=== PATIENT | female | born 1965 | race American Indian/Alaskan Native ===

== ENCOUNTER 2016-12-11 21:20 | Inpatient (IN) | payer BC, OTHER ==
[~2016-12-11] VITALS: Ht 160 cm; Wt 95.2 kg
[~2016-12-11 21:20] MED LIST: FLAX OIL1000 MG PO; MULTIVITAMINS1 EAC7 PO; VITAMIN B-6100 MG PO; VITAMIN C100 MG PO
--- NOTE | 2016-12-12 05:06 | NUR ---
12/12/16 5692 Massiel Henson 6543-PATIENT ARRIVED TO ROOM 128 CCU VIA BED, PLACED ON VENTILATOR RT PUT SETTINGS. DRESSING TO ABDOMEN CDI. LIZARRAGA AND NG TUBE IN PLACE. PATIENT NONAROUSABLE. SR. WRIST RESTRAINTS PLACED. RNS AT BEDSIDE.
--- NOTE | 2016-12-12 07:06 | NUR ---
PT ARRIVED TO THE UNIT AT 0440. PACU MONITORED PT UNTIL 0515. TAPING AND CXR DIFFICULT DUE TO PT WAKING. PROPOFOL TITRATE TO SEDATION IV GTT ORDER AT [address] BUTLER[address] PT SITTING UP MUCH ABLE WHILE AT 20 DEGREES, PULLING AGAINST RESTRAINTS, UNABLE TO REDIRECT. PT OPENING EYES BILAT AND ON COMMAND PRIOR TO ETT TAPING, PT HAS HX OF INCREASED RR AND ANXIOUS PRIOR TO SURGERY. PROPOFOL TITRATED FROM 40 - 75 MCG/KG/MIN. - PT NOT CALMING ON 50 MCG/KG/MIN. DR. BUTLER PRESENT ON UNIT AT THAT MOMENT AND 75MCG/KG/MIN ACCEPTABLE. NGT TO SUCTION, SIMV AT 40%, PS 10, VT 450, PEEP 5. PT'S VS WNL. UO 50 ML/HR, WARM BLANKETS PROVIDED, PERFUSION WNL, AFEBRILE, D5LR AT 125ML/HR. BT SILENT, GAUZE DRESSING MIDLINE ABD CDI.
--- NOTE | 2016-12-12 07:40 | NUR ---
pt sedated to a rass of -2, restraints assessed for pt safety and comfort. muir cath in place, clear yellow urine draining. midline incision dressing intact, no drainage noted, ice pack in place. pt vitals wnl at this time. family at the bedside.
--- NOTE | 2016-12-12 08:05 | NUR ---
ORAL CARES DONE BY RT.
--- NOTE | 2016-12-12 08:10 | NUR ---
IV SITE IN RT AC STARTED BY CADEN DELGADO. SITE INTACT, FLUSHES EASILY, PT JAMES WELL SHE IS SEDATED AT THIS TIME.
--- NOTE | 2016-12-12 09:10 | NUR ---
AT THE BEDSIDE TO EVALUATE PT, COMMUNICATING PLAN OF CARE WITH FAMILY.
--- NOTE | 2016-12-12 09:26 | NUR ---
PT NG TUBE BACKED OUT 12 CM PER BEDSIDE ORDER ACCORDING TO INFORMATION OBTAINED FROM CHEST X-RAY. PT JAMES WELL. PT PREMEDICATED WITH 0.5 MG IV DILAUDID FOR PAIN PREVENTION.
--- NOTE | 2016-12-12 10:09 | NUR ---
MED REC COMPLETE
--- NOTE | 2016-12-12 10:15 | NUR ---
PT TURNED TO THE LEFT SIDE SUPPORTED WITH PILLOWS, RESTRAINTS ASSESSED FOR PT SAFETY AND COMFORT.
--- NOTE | 2016-12-12 10:27 | CONS ---
[facility] [address], [place] [address] Signed DATE OF CONSULTATION: 12/11/16 CHIEF COMPLAINT: Left upper quadrant abdominal pain. HISTORY OF PRESENT ILLNESS Marcelle is a 51-year-old female who came to us earlier today for her initial screening colonoscopy. We removed a routine 5 mm polyp up at 85 cm. She is also known to have diverticulosis. About 9 p.m. this evening, she developed pain in the left upper quadrant that spread across her abdomen. Her friend brought her to the emergency room for evaluation. She is tender in the upper abdomen with an elevated white blood cell count. CT scan of the abdomen and pelvis shows some free air and inflammatory changes in the left upper quadrant at the splenic flexure. Consequently, I was asked to see her here in the emergency room as a general surgeon. In the meantime, she has received antibiotics. ALLERGIES: Clindamycin, Septra, and possibly Hydrocodone. MEDICATIONS: Flaxseed oil, Multivitamin, Vitamin B6, Vitamin C. PAST MEDICAL HISTORY: None. PAST SURGICAL HISTORY Dental bridge work, cholecystectomy in 1994, and knee surgery in 2006. SOCIAL HISTORY She does not smoke. She has an occasional beer. She likes an energy drink once a day. She does not use IV drugs. 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 She is single, but has a friend with her today. Dr. Jr Stoner and Angela Mann NP are her primary care providers. FAMILY HISTORY There is no family history of colon cancer or polyps. Her sister had breast cancer and her paternal uncle had heart attack. There has been no abnormal reaction to anesthesia. REVIEW OF SYSTEMS She had 10 systems reviewed, and she mentioned her glasses, but no other issues. PHYSICAL EXAMINATION VITAL SIGNS: Her blood pressure is 189/107, her heart rate is 99, respiratory rate 16, temperature is 98.2. She is 97% on room air. She is 5 feet 3 inches at 95 kg. GENERAL: Marcelle is a 51-year-old female, who appears her stated age. Her friend is with her at the bedside. LUNGS: Clear to auscultation. HEART: Regular rate and rhythm. ABDOMEN: Tender in the upper portion, particularly on the left side. Electronically Signed By: JB BULTER MD 12/12/16 1027 PATIENT NAME: MARCELLE ERICKSON CONSULTATION DATE OF : 63 PHYSICIAN: JB BUTLER MD REPORT #: [id number] REPORT IS CONFIDENTIAL AND NOT TO BE RELEASED WITHOUT AUTHORIZATION [facility] [address], [place] [address] Signed RECTAL: Exam is not performed. LABORATORY DATA Her white blood cell count 16, neutrophils 70, hemoglobin 15. Her potassium is 3.3, BUN 12, creatinine 0.85, albumin 3.9. Her urinalysis is negative. RADIOGRAPHIC STUDIES A CT scan of the abdomen and pelvis has been performed. I reviewed that myself and I spoke with the radiologist. There are clearly some inflammatory changes with air around the splenic flexure. Along with some diverticulosis, there is also a little bit of inflammatory changes in the hepatic flexure as well. ASSESSMENT AND PLAN Marcelle is a 51-year-old female who presents with a perforation after her colonoscopy earlier today with a biopsy at 85 cm. This would be consistent with the splenic flexure and her CT scan findings. She is also known to have diverticulosis. I met with Marcelle and her friend here in the emergency room. We discussed the above findings in detail. I explained to Marcelle that she needs a laparotomy so we can go repair her perforation in the colon. Usually, we can do this with a few stitches. Occasionally, we have to resect the bowel and once in a great while, would have to have a colostomy. We reviewed the expected intraop and postop course. They have expressed understanding and wished to proceed. In the meantime, we have called our crew and will be headed to the OR shortly. MD ELLIOT Castro/Ace /[id number] cc: MD Angela Montiel NP Electronically Signed By: JB BUTLER MD 12/12/16 1027 PATIENT NAME: MARCELLE ERICKSON CONSULTATION DATE OF : 63 PHYSICIAN: JB BUTLER MD REPORT #: [id number] REPORT IS CONFIDENTIAL AND NOT TO BE RELEASED WITHOUT AUTHORIZATION
--- NOTE | 2016-12-12 10:38 | NUR ---
IN ROOM TO ASSESS PT AND TALK WITH FAMILY AT THIS TIME.
--- NOTE | 2016-12-12 10:50 | NUR ---
1045 TITRATED PROPOFOL TO 40MCG 1050 TITRATED PROPOFOL TO 35MCG PATIENT REMAINS ASLEEP WITH RASS SCORE OF -3 1055 TITRATED PROPOFOL TO 30 MCG, RT AT BEDSIDE. PLACES PATIENT ON CPAP TRIAL FOR LESS THAN ONE MINUTE, PATIENT STILL TO SOMNOLENT. RETURNED TO [facility]. REPORTED OFF TO PRIMARY RN WHO ASSUMES CARE.
--- NOTE | 2016-12-12 11:13 | NUR ---
ATTEMPT MADE TO WAKE PT WITH VERBAL STIMULATION, PT ATTEMPTING TO OPEN EYES, NOT ABLE TO SUPERVISOR COIL WINDING A HAND UPON COMMAND.
--- NOTE | 2016-12-12 11:16 | NUR ---
PT ABLE TO OPEN EYES TO VERBAL STIMULI, PROPOFOL DRIP AT 10 MCG/KG/MIN
--- NOTE | 2016-12-12 11:55 | NUR ---
PT EXTUBATED, JAMES WELL, ON 5L 02 NC.
--- NOTE | 2016-12-12 12:10 | NUR ---
RESTRAINTS REMOVED FROM PT. JAMES WELL, NO DANGER TO SELF AT THIS TIME.
--- NOTE | 2016-12-12 12:31 | NUR ---
IV SITES INTACT, NO REDNESS OR SWELLING NOTED, FLUIDS AND FLUSHES INFUSE EASILY, PT DENIES PAIN AT EITHER SITE. PT VITALS WNL AT THIS TIME, HR SLIGHTLY ELEVATED AT 105. PT ABLE TO REST OFF AND ON, SNORES OCCASIONALLY. MIDLINE INCISION DRESSING INTACT, NO DRAINAGE NOTED, ICE PACK IN PLACE. SCD'D IN PLACE, CALL LIGHT WITHIN REACH. ORAL CARE DONE WITH PINK SWABS, COOL WASH CLOTH, AND LIP BALM APPLIED. PT SISTER IS AT BEDSIDE.
--- NOTE | 2016-12-12 12:35 | NUR ---
CALLED TO REQUEST TORADOL TO BE PLACED BACK ON THE ACTIVE MEDICATIONS. ORDER GIVEN FOR 30 MG IV TORADOL Q8 HOURS NEEDED FOR PAIN FOR A TOTAL OF THREE DAYS ONLY.
--- NOTE | 2016-12-12 13:07 | NUR ---
PT C/O 10/10 ABD PAIN, 0.4 MG IV DILAUDID GIVEN.
--- NOTE | 2016-12-12 13:32 | NUR ---
PT REPORTS NAUSEA 8 MG IV ZOFRAN GIVEN.
--- NOTE | 2016-12-12 14:45 | NUR ---
PT C/O 10/30 ABD PAIN, 0.6 MG DILAUDID GIVEN VIA IV.
--- NOTE | 2016-12-12 14:58 | NUR ---
PT C/O NAUSEA, 12.5 MG IV PHENERGAN GIVEN.
--- NOTE | 2016-12-12 15:47 | NUR ---
PT RESTING QUIETLY AT THIS TIME. ICE PACK IN PLACE ON ABD. CALL LIGHT WITHIN REACH. FAMILY AT THE BEDSIDE.
--- NOTE | 2016-12-12 16:18 | NUR ---
PT O2 TURNED DOWN FROM 5L TO 4L VIA NASAL CANULA
--- NOTE | 2016-12-12 16:18 | EKG ---
[facility] [address] [facility] [place] [address] Signed Sinus tachycardia Nonspecific T wave abnormality Abnormal ECG No previous ECGs available Confirmed by ANTHONY LEACH MD ([id number]) on 12/12/2016 4:17:48 PM Electronically Signed By: ANTHONY LEACH MD 12/12/16 1618 PATIENT NAME: GEORGINAMARCELLE M Electrocardiogram DATE OF : 63 PHYSICIAN: ANTHONY LEACH MD REPORT #: [id number] REPORT IS CONFIDENTIAL AND NOT TO BE RELEASED WITHOUT AUTHORIZATION
--- NOTE | 2016-12-12 16:35 | NUR ---
IV SITES INTACT, NO REDNESS OR SWELLING NOTED, FLUIDS INFUSING EASILY. PT DENIES PAIN AT EITHER SITE.
--- NOTE | 2016-12-12 16:39 | NUR ---
NG TUBE FLUSHED WITH 60 ML TAP WATER. RETURN OF GREEN FLUID IMMEDIATE AFTER REATTACHING TO LOW INTERMITANT WALL SUCTION.
--- NOTE | 2016-12-12 16:52 | NUR ---
CHANGED PT SHEETS AND CHUCKS. PT ROLLED FROM SIDE TO SIDE WITH PILLOW TO BRACE STOMACH. PT STATES "NEXT TIME I AM GOING TO STAND, THAT WAS TOO HARD".
--- NOTE | 2016-12-12 18:35 | NUR ---
PT C/O 10/30 ABD PAIN, 0.8 MG IV DILAUDID GIVEN.
--- NOTE | 2016-12-13 00:10 | NUR ---
Pt's o2 titrated from 4 LPM NC to 1 LPM NC 1900 - 0000.
--- NOTE | 2016-12-13 02:03 | NUR ---
PT BP ONE SYSTOLIC READING < 100. PERFUSION WNL, MENTATION WNL.
--- NOTE | 2016-12-13 07:02 | NUR ---
ANTIEMETICS 0530 EFFECTIVE, DILAUDID AND TORADOL IV. PT DESAT TO 88% ON RA, 1 LPM NC. RR TO 31 FOR APPROXIMATELY 1 MIN. WHILE NAUSEOUS. NO EMESIS. UO 35 ML/HR MOST RECENT HOUR. NO ACUTE DISTRESS AT THIS TIME.
--- NOTE | 2016-12-13 08:12 | NUR ---
IV SITES INTACT, NO REDNESS OR SWELLING NOTED AT EITHER SITE. FLUIDS INFUSING EASILY. PT DENIES PAIN AT EITHER SITE. MIDLINE INCISION COVERED IN GAUZE AND TAPE, NO DRAINAGE NOTED, DRESSING IS INTACT. PT IS DROWSY BUT ABLE TO ANSWER QUESTIONS.
--- NOTE | 2016-12-13 10:15 | NUR ---
FULL BEDBATH GIVEN. PT JAMES WELL, GOWN CHANGED. FAMILY APPLIED LOTION TO PT SKIN. LIZARRAGA CATH CARE DONE, CEM CARE DONE. PT SKIN IS INTACT, MIDLINE INCISION DRESSING IS INTACT, NO DRAINAGE NOTED.
--- NOTE | 2016-12-13 11:31 | OR ---
[facility] [facility] [address], [place] [address] Signed DATE OF PROCEDURE: 12/12/16 PREOPERATIVE DIAGNOSIS Perforated distal transverse colon/splenic flexure following colonoscopy with polypectomy. POSTOPERATIVE DIAGNOSIS Perforated distal transverse colon/splenic flexure following colonoscopy with polypectomy. PROCEDURES Laparotomy with primary colorrhaphy. Takedown splenic flexure. ESTIMATED BLOOD LOSS: None. FINDINGS Marcelle had chronic inflammatory changes in the splenic flexure with omentum adherent around the splenic flexure. She also had acute inflammatory changes in the splenic flexure and with the small bowel in that area. There was a little air in the abdomen and of course there was some turbid fluid. We also took down the splenic flexure in order to elevate the colon up into the operative field and as we carefully going through the chronic adhesions, we finally uncovered the 3-mm perforation in the very distal transverse colon. It was easily oversewn in 2 layers. INDICATIONS Marcelle is a [age]-year-old obese female, who came to us yesterday for her initial screening colonoscopy. We removed a small 5-mm polyp at 85 cm. She had been discharged to home as usual. About 8 o'clock this evening, she felt some pain in the left upper quadrant and with i n an hour or so the pain was worsening. Her friend brought her to the emergency room for evaluation. She was certainly tender in the left upper quadrant with an elevated white blood cell count. A CT scan was performed and sure enough, she had inflammatory changes in the splenic flexure with some free air and some fluid. Of course, I was called to the emergency room to see Marcelle. In the emergency room, I met with Marcelle and her friend. I explained to them the above findings. I explained the need for a midline laparotomy approach the splenic flexure. Normally these can be closed in 2 layers. Therefore, the need for a bowel anastomosis and/or a colostomy is quite remote. I explained to Marcelle and her friend expected intraop and postop course. They understand the risk, risk including but not limited to bleeding, infection, scarring, change in contour the skin, damage to bowel, postoperative intraabdominal abscess, continued leak, incisional hernias and other unforeseen comorbidities. They have expressed understanding and wished to proceed. Electronically Signed By: JB BUTLER MD 12/13/16 1131 PATIENT NAME: MARCELLE ERICKSON OPERATIVE REPORT DATE OF : 63 PHYSICIAN: JB BUTLER MD REPORT #: [id number] REPORT IS CONFIDENTIAL AND NOT TO BE RELEASED WITHOUT AUTHORIZATION [facility] [address] [place] [id number] Signed PROCEDURE NOTE In the emergency room, Marcelle received her Rocephin and Flagyl. She also received Pepcid and subcutaneous heparin. She was taken down to the operating room and placed in a supine position under general endotracheal tube anesthesia. A Scott catheter had been inserted with return of clear yellow urine. Of course, SCDs were utilized. She was then prepped and draped in the usual sterile fashion. We made a standard midline epigastric incision. We spent a few minutes taking down working to take down the splenic flexure. We then had to extend the incision just below the umbilicus. We then placed our Bookwalter retractor. I took a few additional minutes to free up the colon for from the mid left colon around the splenic flexure to the mid transverse colon. That brought the splenic flexure up in the operative field quite nicely. She had acute on chronic inflammatory changes. It took a while to get through some of chronic adhesions at splenic flexure with the cautery. Once we were able to flip up the omentum, we then rapidly found the small 3-mm perforation next to the omentum as it comes across the transverse colon. We closed the mucosa and the serosa together with an interrupted [id number] 3-0 Vicryl suture. We then imbricated the perforation with multiple interrupted 3-0 silk Lembert sutures. This gave us a watertight seal. The area was then copiously irrigated and suctioned out until clear including the lower left upper quadrant in the left gutter. After this, all the bow e l was returned to its position and the omentum was placed back over the bowel. All counts were correct. We then closed the midline fascia with interrupted [id number] #1 PDS sutures. The wound was then copiously irrigated until clear. The dermis was reapproximated with interrupted 3-0 subcuticular Monocryl sutures. The skin was reapproximated with rachael. After this, we left Marcelle intubated. We took her into our ICU in stable condition. MD ELLIOT Castro/Jackl /[id number] cc: MD Angela Braswell FNP Electronically Signed By: JB BUTLER MD 12/13/16 1131 PATIENT NAME: MARCELLE ERICKSON OPERATIVE REPORT DATE OF : 63 PHYSICIAN: JB BUTLER MD REPORT #: [id number] REPORT IS CONFIDENTIAL AND NOT TO BE RELEASED WITHOUT AUTHORIZATION
--- NOTE | 2016-12-13 11:40 | NUR ---
REMOVED DRESSING TO MIDLINE INCISON, SITE IS INTACT, DAVID IN PLACE, EDGES OF SKIN WELL APPROXIMATED. SITE IS DRY AND CLEAN.
--- NOTE | 2016-12-13 11:44 | NUR ---
IN THE ROOM DISCUSSING PLAN OF CARE WITH PT AND FAMILY.
--- NOTE | 2016-12-13 12:41 | NUR ---
IV SITES INTACT, NO REDNESS OR SWELLING NOTED, PT DENIES PAIN AT EITHER SITE. FLUIDS INFUSING EASILY. PT DENIES PAIN, NAUSEA, AND SOB AT THIS TIME. PT ALERT AND ORIENTED X4. FAMILY AT THE BEDSIDE. MIDLINE INCISION C/D/I NO DRESSING AT THIS TIME WOUND IS WNL. NG TUBE DRAINING SMALL TO MODERATE AMOUNT OF GREEN FLUID.
--- NOTE | 2016-12-13 14:20 | NUR ---
full report given to Mary Kate DELGADO. pt transfering to room 116.
--- NOTE | 2016-12-13 14:38 | NUR ---
pt left the unit with Mary Kate DELGADO and Judy DIAZ to room 116 on med-surg.
--- NOTE | 2016-12-13 14:41 | NUR ---
PT MOVED TO ROOM 116 FROM CCU. FAMILY AT BEDSIDE.
--- NOTE | 2016-12-13 14:56 | NUR ---
OFFERED TO SIT PT UP AT EDGE OF BED, PT DECLINED, STATED SHE IS NOT READY.
--- NOTE | 2016-12-13 16:31 | NUR ---
PT C/O NAUSEA AND SOB. ENCOURAGED PT TO COUGH AND DEEP BREATH. UNABLE TO MAINTAIN HIGHER O2 SATS. FLUSHED NG TUBE WITH 60 CC WATER DUE TO NO RETURN. NO RETURN FROM NG OF WATER OR ANY OTHER DRAINAGE. NOTIFIED DR BUTLER OF CHANGES. ORDER TO REMOVE PTS NG TUBE. GIVEN 8 MG OF ZOFRAN FOR NAUSEA. NG TUBE REMOVED. PT TOLERATED WELL. PT UP TO STAND AT BEDSIDE AND AMBULATE A FEW STEPS TO DOOR. PT COUGHED AND DEEP BREATHED WHILE UP AT BED SIDE. BACK TO BED WITH CLEAN LINENS. PTS O2 SATS IMPROVED. PT STATES SHE IS FEELING BETTER AND THAT HER NAUSEA IS GONE.
--- NOTE | 2016-12-13 17:19 | NUR ---
PT CONTINUES TO TAKE SMALL SHALLOW, FAST BREATHS. EDUCATED PT ON NEED TO TAKE DEEP BREATHS AND COUGH. ASSISTED PT TO SPLINT ABD, PT ABLE TO COUGH. CALLED RT FOR PRN NEB TREATMENT DUE TO PT WHEEZING AND PT REQUEST.
--- NOTE | 2016-12-13 18:29 | NUR ---
PTS O2 LEVEL DOWN TO 84% WHILE SLEEPING. INCREASED O2 TO 2L. DISCUSSED PAIN MEDICATION WITH PTS AND EDUCATED ON EFFECTS THAT IT MAY HAVE ON HER. ALSO EDUCATED ON USE OF PILLOW FOR SPLINTING, COUGH AND DEEP BREATH, AND ALBUTEROL NEBS.
--- NOTE | 2016-12-13 19:50 | NUR ---
Pt awakens easily, drowsy, using MACHINE FEEDER RAW STOCK Dilaudid with good pain relief, IVF infusing w/o problems, f/c patent draining light rod urine, scds in place, cont pulse ox inplace, sats 92% on 2L/NC, P107, R 14. Significant other in room
--- NOTE | 2016-12-13 22:15 | NUR ---
PT WANTED TO GET OUT OF BED. TOLERATED DANGLING FEET VERY WELL, WALKED TO BRP AND BACK TO BED, O2 2LN/C,SOB WITH EXERTION NOTED, SATS DROPPED TO 87%, RESP 20, CDB AND USE OF ISX7(PT ABLE TO GO UP TO 250 ONLY), DID WELL, SATS WENT BACK TO 92%. BACK TO BED, LUNGS CLEAR, DIM AT BASES, PT NPO, MOUTH CARE DONE BY SIGNIFICANT OTHER, FAMILY GAVE PT A PARTIAL BED BATH, TOLERATED WELL, LINEN CHANGED. PT USING RECREATION TEACHER WITH GOOD PAIN RELIEF. IV SITE RAC RED, TENDER, SLIGHTLY EDEMATOUS, NOT PATENT, DC'D, TIP INTACT. ALL PROCEDURES EXPLAINED TO PT AND FAMILY, STATED UNDERSTANDING.
--- NOTE | 2016-12-14 00:31 | NUR ---
MEDICATED WITH ZOFRAN PER C/O N/V
--- NOTE | 2016-12-14 02:33 | NUR ---
PT WORKED ON IS X10, UP TO 250-300, MORE AWAKE, REPOSITIONED IN BED, SATS 92% P100, RESP 14, NO DISTRESS, R ARM/HAND LESS EDEMATOUS, BOTH ARMS ELEVATED WITH PILLOWS, SCDS OFF AT THIS TIME AT HER REQUESTS, COVERS REMOVED EARLIER, TEMP WAS 99.4. CDB ENCOURAGED AND DONE BY PT, USING MARINE ELECTRICIAN DILAUDID WITH GOOD PAIN RELIEF
--- NOTE | 2016-12-14 05:31 | NUR ---
Pt currently resting, no resp distress, resp 16, resp even, unlabored. Pulse ox in place, sats 93%, pulse 100-107. Pt temp 99.5 at this time. Ice packs applied to axilla area bilat, covers removed, temp lowered in room. Pt has been working with IS every hour while awake since 2200, Up to 250-300 at this time, CDB encouraged and demonstrated too. Lungs clear bilat at this time, no tracheal whezing present at this time. NPO, frequent mouth care perfamily. Pt abd mid line incision intact, rachael and edges well approx, cdi. abd with hypoative upper bowel tones and super faint bowel tones lower abd. Abd soft upper abd, tender all billy. Pt has been burping several times, but declines rectal flatus at this time. F/c intact, ned care done, draining QS light rod urine. scds, and heel protector on and off at pts requests. Pt got up and walked to brp, and back to bed. Tolerated well, slight sob noted after returning to bed. Pt is on 2L n/c, continuous. sats dropped to the 87 and inmediatelly up to 90% after CDB. Light edema and redness of upper L arm and hands noted. IV dc'd. Both hands +1, non pitting edema, elevated with pillows, decreased edema noted. Pt and family very receptive to teaching, all their questions answered to their satisfaction. All procedures explained. Pt medicated twice with zofran per c/o dry heaving and n/v, no emesis noted
--- NOTE | 2016-12-14 06:30 | NUR ---
PT VOMITING, NO EFFECT WITH ZOFRAN. PHENERGAN ADMINISTERED. CALL PARISI IN REACH.
--- NOTE | 2016-12-14 07:20 | NUR ---
REPORT RECV'D FROM RADHA RN. PT SLEEPING, FAMILY AT BEDSIDE. PT CURRENTLY NPO. LIZARRAGA IN PLACE. D5LR @ 125 MLS INFUSING IN THE L AC. PULSE OX IN PLACE, O2 @ 2L. DELIVERY SALES WORKER IN PLACE. NO FURTHER NEEDS AT THIS TIME. CALL LIGHT IN REACH.
--- NOTE | 2016-12-14 09:30 | NUR ---
PT UP TO BSC, TOLERATED WELL. BED BATH COMPLETED. HAIR WASHED. AFTER DISCUSSING WITH PT AND FAMILY, PT WOULD LIKE TO HAVE NG TUBE INSERTED. CALLED DR. CARRIE RIVERA TO INSERT NG AND CONNECT TO LOW INTER. WALL SUCTION. PT NOTIFIED. PT ASSISTED BACK TO BED. NO FURTHER NEEDS AT THIS TIME.
--- NOTE | 2016-12-14 10:15 | NUR ---
IN TO SEE PT, DISCUSSED STARING 2ND IV SITE DUE TO MULTIPLE MEDICATIONS BEING ADMINISTERED. PT AND FAMILY AGREE TO 2ND SITE. DR. BUTLER IN TO SEE PT. 2ND IV SITE PLACED IN THE R HAND. PT TOLERATED WELL. IV SL. NO FURTHER NEEDS AT THIS TIME. MEDICATION COMPATIBILITIES HUNG ON WHITE BOARD IN ROOM. PT RESTING, CALL LIGHT IN PLACE.
--- NOTE | 2016-12-14 12:15 | NUR ---
NG TUBE PLACEMENT ATTEMPTED BY JOSE DANIEL DELGADO WITH ASSISTANCE FRON HOUSE SUPERVISIOR. UNABLE TO PLACE NG DUE TO PAIN AND TRAUMA TO THE L SIDE OF PT NARE. IN TO DISCUSS WITH PT AND SISTER. AT THIS TIME THE PT WOULD LIKE TO NOT HAVE AN NG TUBE PLACED. I ADVISED PT TO CALL TO REPORT ANY NAUSEA OR VOMITING. SISTER AT BEDSIDE AND AGREES WITH CURRENT PLAN.
--- NOTE | 2016-12-14 13:00 | NUR ---
PT CALLED, IN TO ROOM, CURRENT IVF COMPLETED. WHEN RETURNING WITH NEW IVF PT COMPLAINED OF NAUSEA. RN WAS PREPARING IV ZOFRAN PT HAD EPISODE OF VOMITING. 100+ MLS OF GREEN EMESIS NOTED. ZOFRAN GIVEN. DISCUSSED CALLING DR. BUTLER TO ATTEMPT TO PLACE NG TUBE. PT REFUSED NG PLACEMENT AT THIS TIME. SISTER AT BEDSIDE. I LET THE PT KNOW THAT DR. BUTLER WILL BE NOTIFIED OF EVENTS. NO FURTHER NEEDS AT THIS TIME, CALL LIGHT IN REACH.
--- NOTE | 2016-12-14 13:30 | NUR ---
IN TO CHECK ON PT. PT DENIES NAUSEA AFTER RECIEVING ZOFRAN. ATTEMPTED TO CONTACT DR. BUTLER, AN ANSWER AT THIS TIME. WILL CONTINUE TO ATTEMPT TO CONTACT
--- NOTE | 2016-12-14 14:15 | NUR ---
RECIEVED BEDSIDE REPORT FROM DANNY PROCTOR. PT RESTING IN BED WITH FAMILY AT BEDSIDE. PT STATES NO NEEDS AT THIS TIME. CALL PLACED TO DR BUTLER, WAITING FOR CALL BACK TO ADVISE PT VOMITED AGAIN AND REFUSES FURTHER ATTEMPTS AT NG TUBE PLACEMENT.
--- NOTE | 2016-12-14 14:20 | NUR ---
REPORT GIVEN TO ELIAS DELGADO.
--- NOTE | 2016-12-14 14:36 | NUR ---
PATIENT WAS VEY SLEEPY, I DID VITALS, AND SHE SAID SHE DIDNT NEED ANYMORE ASSISTANCE AT THE TIME.
--- NOTE | 2016-12-14 14:48 | NUR ---
STARTED IV ABX. PT STATES NO NASUEA AT THIS TIME. PT STATES PAIN IS WELL CONTROLLED AT THIS TIME, DOES NOT WANT TO CHANGE DIRECTOR OF PHYSICAL THERAPY SETTINGS. PT STATES THAT SHE THINKS THE PAIN MEDS ARE TOO STRONG.
--- NOTE | 2016-12-14 15:18 | NUR ---
PT REPORTS NAUSEA WITH SPITTING UP SMALL AMOUNTS OF CLEAR SPIT. PT GIVEN DOSE OF PHENERGEN. CALLED DR BUTLER WITH UPDATE RE: CONTINUED VOMITING AND REFUSAL OF NG TUBE AT THIS TIME. DR BUTLER ADVISED TO PLACE LARGER SIZED NG TUBE IF PT ALLOWS, DO NOT USE THE SMALLER TUBE. AT THIS TIME, PT IS DECLINING NG TUBE. FAMILY AT BEDSIDE. PT TURNED PER REQUEST.
--- NOTE | 2016-12-14 17:10 | NUR ---
PT STILL COMPLAINING OF NAUSEA. PT REFUSING NG TUBE AT THIS TIME. CALL PLACED TO DR BUTLER FOR ADDITIONAL ORDER FOR NAUSEA MEDICATION. TELEPHONE ORDER GIVEN FOR REGLAN, 10MG IV Q8. ORDER ENTERED.
--- NOTE | 2016-12-14 17:50 | NUR ---
NEW ORDER FOR REGLAN GIVEN. PT ABLE TO SIT ON BSC, NO EFFECTS. PT PASSING FLATUS AND BURPING WHILE SITTING UP. PT STATED PAIN WAS TOLERABLE WITH MOVEMENT. PT AMBULATED AROUND BED. TOLERATED WELL. PT MORE TALKITIVE AND LAUGHING WITH FAMILY AND STAFF. PT USED IS X10 WHILE SITTING UP.
--- NOTE | 2016-12-14 19:30 | NUR ---
RECEIEVED REPORT FROM DAY SHIFT NURSE.
--- NOTE | 2016-12-14 19:49 | NUR ---
PT RESTING IN BED. FAMILY AT BEDSIDE. PT STATES SHE IS FEELING NAUSEOUS. RN IN TO ADMINISTER ZOFRAN. IVF INFUSING W/O DIFFICULTY. DIELECTRIC MACHINE OPERATOR PUMP IN PLACE. CALL PARISI IN REACH.
--- NOTE | 2016-12-14 20:55 | NUR ---
pt sleeping. family at bedside.
--- NOTE | 2016-12-14 22:13 | NUR ---
PT SLEEPING. SHE WOKE UP I WAS HANGING HER ABX. PT STATES SHE IS COMFORTABLE AND DENIES NEEDS. PT HAS NOT PUSHED SAIL REPAIRER BUTTON SINCE DAY SHIFT. CALL PARISI IN REACH.
--- NOTE | 2016-12-14 23:02 | NUR ---
RN AND ETHOLOGIST ASSITED PT TO BSC.
--- NOTE | 2016-12-14 23:18 | NUR ---
PT HAD MEDIUM SIZE PUDDING CONSISTENCY BM. PT ABLE TO AMBULATE WITH MINIMAL ASSISTANCE AROUND BED. NC IN PLACE. IVF INFUSING. PT DENIES FURTHER NEEDS.
--- NOTE | 2016-12-15 00:25 | NUR ---
PT RESTING IN BED. C/O PAIN 5/10 IN ABD. ENCOURAGED PT TO PUSH DIRECTOR HOUSEKEEPING BUTTON. PT DENIES FURTHER NEEDS.
--- NOTE | 2016-12-15 01:04 | NUR ---
PT BACK TO BED FROM BSC. UNABLE TO HAVE A BM. PT PUSHED MATERIALS TECH BUTTON WHILE I WAS IN THE ROOM. PT DENIES NEEDS AT THIS TIME. SCDS IN PLACE. CALL PARISI IN REACH.
--- NOTE | 2016-12-15 03:00 | NUR ---
PT SLEEPING. SIGNIFICANT OTHER AT BEDSIDE. CALL PARISI IN REACH.
--- NOTE | 2016-12-15 05:35 | NUR ---
PT SLEEPING. CALL PARISI IN REACH.
--- NOTE | 2016-12-15 05:59 | NUR ---
PT UP TO BSC WITH ASSISTANCE. RATES PAIN /10. SIGNIFICANT OTHER ASSISTING PT WITH BRUSHING TEETH. DENIES FURTHER NEEDS.
--- NOTE | 2016-12-15 06:00 | NUR ---
PT UP TO BSC WITH ASSISTANCE. PT HAD LARGE SOFT BM (PUDDING). PT AMBULATED AROUND HER BED. RATES PAIN AT A MINIMUM. STATES IT IS AT A TOLERABLE LEVEL.
--- NOTE | 2016-12-15 07:46 | NUR ---
DR BUTLER IN TO SEE PT THIS MORNING. PT SLEEPING. AWAKENS TO TOUCH. PT REPORTS PASSING GAS AND HAD TWO BMs YESTERDAY. NO NAUSEA AT THIS TIME. CATHETER REMOVED PER MD AND IVF DECREASED TO 100ML/HR. PT ASSISTED UP IN BED SOME AND REPOSITIONED FOR COMFORT.
--- NOTE | 2016-12-15 08:00 | NUR ---
patient resting in bed with eyes closed. call button in reach.
--- NOTE | 2016-12-15 08:30 | NUR ---
patient up to BSC. bed bath done. ned care done. patient back to bed. refused oral care at this time and shampoo. she states she will do it later. talked to patient about getting up to chair she refused. told patient that I'll let her rest for a bit then go for a walk.
--- NOTE | 2016-12-15 09:55 | NUR ---
patient laying in bed resting with eyes closed. call button in reach. no other needs at this time.
--- NOTE | 2016-12-15 11:43 | NUR ---
CARRIE NOTIFIED OF BLADDER SCAN OF 659ML AFTER SEVERAL ATTEMPTS TO VOID WITH NO PRODUCTION. STRAIGHT CATH ORDERED AND REGLAN DISCONTINUED PER MD.
--- NOTE | 2016-12-15 12:22 | NUR ---
PATIENT UP TO BSC WITH ONE PERSON ASSIST.
--- NOTE | 2016-12-15 12:30 | NUR ---
1 person assist back to bed from BSC. call light in reach. family in room. talked to patient about going for a walk after noon vitals are done. no other needs at this time.
--- NOTE | 2016-12-15 13:16 | NUR ---
straight cathed patient and had 900ml urine emptied. pt reports relief of pressure. "feels so much better". will continue to attempt urination on bsc.
--- NOTE | 2016-12-15 14:32 | NUR ---
RN in room giving medication. Patient states that she is nauseated. call button in reach. no other needs at this time.
--- NOTE | 2016-12-15 16:06 | NUR ---
pt urinated 400ml in BSC. ambulated to nurse's station and back to room with 2 breaks. 1L o2 via NC in place. pt sitting up in chair now.
--- NOTE | 2016-12-15 17:19 | NUR ---
CATHETER REMOVED AT 0800. STRAIGHT CATHED AT 1230. 900ML OUT. ABLE TO VOID 400ML INTO BSC. SBA WITH FWW. AMBULATED 100FT WITH TWO BREAKS TODAY. MIDLINE ABD INCISION. DAVID INTACT. ZOFRAN X1. NA PHOS RIDER GIVEN. FLAGYL/CEFEPIME. D5LR @100. DILAUDID HOTEL OPERATIONS MANAGER. 1L 02 VIA VA.
--- NOTE | 2016-12-15 19:37 | NUR ---
RECIEVED REPORT FROM DAY SHIFT NURSE. PT RESTING IN BED. AMBULATED TO BATHROOM. VOIDED 750CC CLEAR YELLOW URINE. PT BACK TO BED. STATES PAIN 09/29. SENIOR DATA INTEGRATION DEVELOPER IN USE. BOWEL SOUNDS ACTIVE. INCISION WNL. FINE CRACKLES IN LUNG BASES. ENCOURAGED USE OF IS WHILE SITTING UP IN BED. PT ABLE TO REACH 500ML ON IS. PT DENIES FURTHER NEEDS. FAMILY AT BEDSIDE. CALL PARISI IN REACH.
--- NOTE | 2016-12-15 21:08 | NUR ---
PT UP TO BSC TO VOID AGAIN. MINIMAL ASSISTANCE REQUIRED. CALL PARISI IN REACH.
--- NOTE | 2016-12-15 22:14 | NUR ---
PT SLEEPING. SIGNIFICANT OTHER AT BEDSIDE. ABX STARTED. CALL PARISI IN REACH.
--- NOTE | 2016-12-15 22:59 | NUR ---
PT STATES SHE IS "SUFFOCATING." RR 26-28. O2 SAT 96% ON 7L. ATIVAN ADMINISTERED.
--- NOTE | 2016-12-15 23:35 | NUR ---
PT SLEEPING. SIGNIFICANT OTHER AT BEDSIDE. CALL PARISI IN REACH.
--- NOTE | 2016-12-16 01:01 | NUR ---
ASSISTED PT TO BATHROOM. PT VOIDED LARGE AMOUNT. PT BACK TO BED, USED IS A FEW TIMES. GOT TO 500ML. REMOVED IV IN L AC. PT DENIES NEEDS. CALL PARISI IN REACH.
--- NOTE | 2016-12-16 03:03 | NUR ---
PT UP TO BSC WITH ASSIST. ABLE TO HAVE BM-MEDIUM SOFT. VOIDED LARGE AMOUNT. BACK TO BED. STATES SHE IS NAUSEOUS. ZOFRAN ADMINISTERED. ABX INFUSING. SOLAR SALES ESTIMATOR IN USE. CALL PARISI IN REACH.
--- NOTE | 2016-12-16 03:40 | NUR ---
PT STATES SHE IS NO LONGER NAUSEOUS. NEW BAG OF IVF INFUSING. CALL PARISI IN REACH.
--- NOTE | 2016-12-16 04:51 | NUR ---
PT SLEPT MOST OF THE NIGHT. UP TO BATHROOM SEVERAL TIMES VOIDING LARGE AMOUNTS. BM X1. NAUSEOUS X 1-GOOD EFFECT WITH ZOFRAN. MATH AND SCIENCES DEPARTMENT CHAIR USED MINIMALLY. FINE CRACKLES IN LUNG BASES. BETTER USE OF IS.
--- NOTE | 2016-12-16 05:13 | NUR ---
assisted patient used the commode. patient walked to the first nurse station and back. patient is up in the chair.
--- NOTE | 2016-12-16 05:44 | NUR ---
PT UP TO BATHROOM WITH ASSIST.
--- NOTE | 2016-12-16 06:24 | NUR ---
PT IN BED. WARM BLANKET APPLIED. PT DENIES FURTHER NEEDS. CALL PARISI AND DRAY TRUCK DRIVER BUTTON IN REACH.
--- NOTE | 2016-12-16 07:24 | NUR ---
PT UP TO BSC THIS MORNING. URINATING WELL THROUGHOUT NIGHT. USING DILAUDID GEOTECHNICAL ENGINEERING TECHNICIAN APPROPRIATELY. CEFEPIME INFUSING NOW. WILL PLAN TO ENCOURAGE INCENTIVE SPIROMETER AND AMBULATION TODAY. PT NEEDS FREQUENT ENCOURAGEMENT. 1L 02 VIA NC. WILL TRY TO TITRATE WELL.
--- NOTE | 2016-12-16 10:07 | NUR ---
PT HAD SHOWER THIS MORNING BEFORE 0900. SITTING UP IN CHAIR NOW. PROVIDED HOT TEA FOR PATIENT TO SIP ON. C/O HEADACHE RELATED TO SMELLS FROM PERFUME. LIGHTS DIM. CHOPPER FEEDER ENCOURAGED PT TO USE INCENTIVE SPIROMETER AFTER SHOWER.
--- NOTE | 2016-12-16 10:16 | NUR ---
PT WALKED TO THE BATHROOM, USED THE TOILET, AND THEN RETUNED TO THE CHAIR. PT HAS SHOWERED AND BRUSHED HER TEETH. PT HAS CALL LIGHT IN REACH. PT WAS REMINDED TO US HER "IS"
--- NOTE | 2016-12-16 10:30 | NUR ---
PT AMBULATED IN THE HALLWAY ONE FULL LAP AND RETURNED TO ROOM, USED BATHROOM AND IS NOW RESTING SAFELY IN BED WITH CALL LIGHT IN REACH.
--- NOTE | 2016-12-16 12:34 | NUR ---
PT IS RESTING IN BED SAFELY WITH CALL LIGHT IN REACH AND EYES CLOSED RESPERATIONS EVEN
--- NOTE | 2016-12-16 13:12 | NUR ---
PT IMPROVING IN MOBILITY AND STRENGTH TODAY. KARENA, STUDENT RN, AMBULATING PATIENT NOW. ABD TO STAND AND AMBULATE SBA. IVF INFUSING CONTINUOUSLY. TOLERATING CLEAR LIQUIDS WELL. GOING SLOWLY.
--- NOTE | 2016-12-16 14:06 | NUR ---
PT IS RESTING SAFELY IN BED WITH CALL LIGHT IN REACH AND EYES CLOSED, RESPERATION EVEN. PT BRIEFLY WOKE UP FOR VITALS THEN FELL BACK ASLEEP.
--- NOTE | 2016-12-16 15:28 | NUR ---
PT AMBULATING HALLS NOW. 3RD TIME TODAY. PHYSICAL THERAPY HAS YET TO WORK WITH PATIENT. DOING WELL ON ROOM AIR. DOES NEED 02 WHEN SLEEPING. TOLERATING CLEAR LIQUIDS WELL.
--- NOTE | 2016-12-16 15:30 | NUR ---
PT JUST FINISHED AMBULATING IN THE HALLWAY, SHE WALKED ONE FULL LAP. PT DID SO WITHOUT O2, SATURATION WAS 93%. PT ASKED FOR ICE CHIPS AND AN ICE PACK FOR HER KNEE.
--- NOTE | 2016-12-16 16:59 | NUR ---
TITRATED TO ROOM AIR WHEN AMBULATING AND UP IN CHAIR. 1L 02 WHEN SLEEPING. ENCOURAGE INCENTIVE SPIROMETER. UP TO BATHROOM MULTIPLE TIMES TODAY. AMBULATED X4 SBA WITH FWW. MIDLINE ABD INCISION DAVID C/D/I AND WELL APPROXIMATED. USING DILAUDID REGISTERED PHLEBOTOMIST PART TIME APPROPRIATELY. FLAGYL/CEFEPIME. D5LR @ 65. CLEAR LIQUID DIET. TOLERATING WELL. NO NAUSEA MEDS. PT C/O HEADACHE D/T "PERFUME SMELL" ON SELECTIVE STAFF.
--- NOTE | 2016-12-16 18:11 | NUR ---
PT IS SITTING UP IN BED WITH CALL LIGHT IN REACH, FINISHING HER DINNER. PT DID NOT NEED ANYTHING ELSE
--- NOTE | 2016-12-16 19:15 | NUR ---
BEDSIDE REPORT RECIEVED FROM GAVIN. PATIENT UP TO BATHROOM WITH ONE PERSON ASSIST. IV FLUID AND TRAIN EXAMINER INFUSING WELL. DENIES DIZZINESS WHILE STANDING. NO NAUSEA.
--- NOTE | 2016-12-16 19:45 | NUR ---
PATIENT RESTING IN THE CHAIR. DENIES NAUSEA, REPORT 1/10 ABD PAIN. TECHNICAL SOURCING RECRUITER IN USE. IV SITE PATENT FLUID AMD ABX INFUSING WELL. SHIFT ASSESSMENT DONE. LUNGS ARE CLEAR, POSITIVE BOWEL TONES. PERIPHERAL PULSES PALPABLE, SCD ON. MIDLINE INCISION OPEN TO AIR WITH ALL DAVID IN PLACE AND WOUND IS WELL APPROX. NO APPARENT DISTRESS NOTED. PATIENT'S FAMILY IN ROOM. CALL LIGHT WITHIN REACH. WILL CONTINUE TO MONITOR.
--- NOTE | 2016-12-17 00:24 | NUR ---
PATIENT WAS ASSISTED TO BATHROOM TO VOID WITH FWW. TOLERATED WELL. BACK TO BED WITH NO DIFFICULTIES. PATIENT DENIES NAUSEA. REPORTS 6/10 PAIN AT THE INCISION SITE. SUPERVISOR NATURAL GAS PLANT IN USE FOR PAIN. PATIENT RESTING IN AT THIS TIME. NO OTHER REQUESTS.
--- NOTE | 2016-12-17 03:05 | NUR ---
ASSISTED PATIENT TO BATHROOM WITH FWW. TOLERATED WELL. PATIENT REQUESTED TO GO FOR A WALK. PATIENT AMBULATED IN THE [address] WAY WITH NURSING PERSONNEL WITH NO DIFFICULTIES. ASSISTED PATIENT BACK TO BE. CATAPULT AND ARRESTING GEAR OFFICER VIAL CHANGED. PATIENT REPORTED 6/10 ABD PAIN. CATAPULT AND ARRESTING GEAR OFFICER IN USE. RESTING IN BED AT THIS TIME.
--- NOTE | 2016-12-17 06:18 | NUR ---
PATIENT HAD AN UNEVENTFUL NIGHT. HAS BEEN UP TO BATHROOM MULTIPLE TIME TO VOID. AMBULATED TIME ONE FOR THIS SHIFT. IV SITE PATENT, FLUID AND ABX INFUSING WELL. MIDLINE INCISION OPEN TO AIR WITH ALL DAVID IN PLACE. BOWEL TONE POSITIVE. PATIENT ON 1L OF 02 WHILE SLEEPING. DILAUDID PIN ATTACHER IN USE. ENCOURAGE I/S AND AMBULATION.
--- NOTE | 2016-12-17 07:34 | NUR ---
PT AMB HALLWAY WITH SBA AND FWW, JAMES WELL.
--- NOTE | 2016-12-17 08:15 | NUR ---
TALKED TO PATIENT ABOUT A SHOWER AFTER SHE EATS BREAKFAST. NO OTHER NEEDS AT THIS TIME. VISITOR IN ROOM.
--- NOTE | 2016-12-17 08:50 | NUR ---
PT AWAKE IN BED, HAD ALL OF CLEAR LIQUID TRAY, JAMES WELL. PT REPORTING ABD PAIN 3/10, USING DILAUDID MANAGER SUPPLY APPROPRIATELY. DENIES NAUSEA. MIDLINE INCISION OPEN TO AIR, WELL APPROXIMATED, DAVID INTACT, NO REDNESS, INFLAMMATION, OR DRAINAGE NOTED. BOWEL TONES ACTIVE. PT DENIES PASSING GAS. MORNING MEDICATIONS ADMINISTERED AND PT AMB TO RESTROOM TO SHOWER WITH MINIMAL ASSIST BY EVARISTO DIAZ.
--- NOTE | 2016-12-17 09:00 | NUR ---
ASSISTED PATIENT WITH SHOWER. CEM CARE DONE. ORAL CARE DONE. LINENS CHANGED. SITTING UP IN CHAIR WITH FEET UP. CALL BUTTON IN REACH. NO OTHER NEEDS AT THIS TIME.
--- NOTE | 2016-12-17 10:17 | NUR ---
PATIENT SITTING UP IN CHAIR. SISTER IN ROOM. CALL BUTTON IN REACH FRESH ICE WATER GIVE. PATIENT PICKING SOMETHING OUT TO EAT FOR LUNCH. TALKED TO PATIENT ABOUT WALKING WITH OUT WALKER. NO OTHER NEEDS AT THIS TIME.
--- NOTE | 2016-12-17 12:00 | NUR ---
PT BACK TO BED AFTER AMB WITH P.T., JAMES WELL. IV TUBING CHANGED PER PROTOCOL, IV FLUSHED. VISITORS AT BEDSIDE. PT DENIES PAIN OR OTHER CONCERNS AT THIS TIME. CALL LIGHT WITHIN REACH.
--- NOTE | 2016-12-17 12:00 | NUR ---
patient sitting up in chair with call light in reach. no needs at this time. sister in room.
--- NOTE | 2016-12-17 13:56 | NUR ---
PATIENT RESTING IN BED. STATES SHE HAD A DULL BACK PAIN AFTER EATING LUNCH. PUSHED ENROLLMENT SPECIALIST BUTTON AND PAIN IS GONE. CALL BUTTON IN REACH. FAMILY IN ROOM. NO OTHER NEEDS AT THIS TIME.
--- NOTE | 2016-12-17 14:45 | NUR ---
PT AMB HALLWAY WITH WALKER AND PAL JAMES WELL.
--- NOTE | 2016-12-17 15:30 | NUR ---
patient sitting up in chair with legs elevated watching T.V. . call button in reach. no needs at this time.
--- NOTE | 2016-12-17 15:57 | NUR ---
patient ambulating in hallway with PT.
--- NOTE | 2016-12-17 16:17 | NUR ---
PT AMB HALLWAY WITH P.T. WITH FWW. USED RESTROOM AFTERWARDS. THIS RN ASSISTED PT TO BED, SHE WOULD LIKE TO "TAKE A REST." DENIES PAIN, DENIES FLATUS BUT REPORTS STOMACH "RUMBLING". DENIES NAUSEA. JAMES DIET ADVANCE TO SOFT DIET. RESTING IN BED WITH WARM BLANKET. CALL LIGHT WITHIN REACH. VISITOR AT BEDSIDE.
--- NOTE | 2016-12-17 17:50 | NUR ---
PT ATE SOFT DINNER, JAMES WELL. REPORTS PASSING GAS THIS EVENING. DENIES NAUSEA. PAIN CONTROLLED WITH DILAUDID CONCRETE STONE FINISHING SUPERVISOR. VISITORS AT BEDSIDE. CALL LIGHT WITHIN REACH.
--- NOTE | 2016-12-17 18:48 | NUR ---
PATIENT RESTING IN BED WATCHING TV. ENCOURAGED PATIENT TO DRINK MORE LIQUIDS. PATIENT IS CONCERNED ABOUT NOT HAVING A BM IN A LONG TIME. PATIENT STATES THAT SHE WAS ABLE TO PASS GAS TODAY. ENCOURAGED PATIENT TO AMBULATE TO GET BOWLS TO MOVE. CALL BUTTON IN REACH. NO OTHER NEEDS AT THIS TIME.
--- NOTE | 2016-12-17 19:20 | NUR ---
BEDSIDE SHIFT REPORT RECEIVED FROM DANNY JOLLY. PT IS SITTING UP IN BED, IVF INFUSING WNL. SCD'S IN PLACE. VISITOR AT BEDSIDE. PT DENIES PAIN. CALL LIGHT IS WITHIN REACH, DENIES FURTHER REQUESTS AT THIS TIME. WILL CONTINUE TO MONITOR.
--- NOTE | 2016-12-17 20:25 | NUR ---
ASSESSMENT COMPLETED. ALERT/ORIENTED. REPORTS ABDOMINAL PAIN 5/10, WHICH SHE STATES IS TOLERABLE, USING DILAUDID MACHINE SPRING FORMER APPROPRIATELY. LUNGS CLEAR, DIM IN BASES, PT USING I.S. AND ACAPELLA INDEPENDENTLY. HR REGULAR. BOWEL TONES ACTIVE, PT DENIES NAUSEA, DENIES FLATUS. MIDLINE INCISION IS WELL-APPROXIMATED, DAVID INTACT, NO DRAINAGE PRESENT. ABDOMEN HAS SCATTERED BRUISING FROM PREVIOUS HEPARIN INJECTIONS. SCD'S IN PLACE. IV PATENT, INFUSING WNL. UP TO AMBULATE IN HALLWAY WITH SBA AND FWW. WILL CONTINUE TO MONITOR.
--- NOTE | 2016-12-17 21:15 | NUR ---
IN TO START CEFEPIME INFUSION. PT SLEEPY, ROUSES EASILY WHEN SPOKEN TO. DENIES FURTHER NEEDS.
--- NOTE | 2016-12-17 22:20 | NUR ---
PT UP TO BATHROOM WITH SBA AND FWW. VOIDED AND THEN RETURNED TO BED. NO FURTHER REQUESTS AT THIS TIME, WILL CONTINUE TO MONITOR.
--- NOTE | 2016-12-17 23:34 | NUR ---
PT UP AMBULATING IN HALLWAY WITH TEMPERATURE LOGGING OPERATOR, SBA AND FWW.
--- NOTE | 2016-12-18 01:54 | NUR ---
IN TO START FLAGYL INFUSION. PT PUSHED EXPLOSIVE TECHNICIAN BUTTON AND SYRINGE COMPLETED. NEW DILAUDID EXPLOSIVE TECHNICIAN SYRINGE STARTED WITH SECOND RN, FOREIGN TO VERIFY. ASSESSMENT COMPLETED, NO CHANGES FROM PREVIOUS ASSESSMENT. PT SLEEPY, DENIES FURTHER REQUESTS. CALL LIGHT IS WITHIN REACH, WILL CONTINUE TO MONITOR.
--- NOTE | 2016-12-18 03:45 | NUR ---
PT CALLED AND NEEDED TO GET UP TO BATHROOM. UP TO BATHROOM WITH SBA AND FWW, THEN RETURNED TO BED. NO FURTHER REQUESTS, CALL LIGHT IS WITHIN REACH.
--- NOTE | 2016-12-18 05:11 | NUR ---
PT SLEPT WELL DURING NIGHT. PAIN WELL CONTROLLED WITH DILAUDID AERIAL GUNNER, PT STATES SHE WOULD LIKE TO SWITCH TO ORAL PAIN MEDICATION TODAY. LUNGS CLEAR, DIM IN BASES, USES I.S. AND ACAPELLA INDEPENDENTLY. MIDLINE INCISION IS WELL-APPROXIMATED, DRY, DAVID INTACT. PT HAS AMBULATED IN HALLWAY A FEW TIMES DURING THE NIGHT, SBA WITH FWW. BOWEL TONES ACTIVE, NO NAUSEA. IV PATENT, D5LR @50, IV ABX: FLAGYL AND ZOSYN.
--- NOTE | 2016-12-18 05:37 | NUR ---
IN TO START CEFEPIME INFUSION, PT SLEEPING, NO APPARENT DISTRESS. RESPIRATIONS EVEN AND UNLABORED, RR:14. SATS: 92% ON RA. HR:68. WILL CONTINUE TO MONITOR.
--- NOTE | 2016-12-18 07:05 | NUR ---
BEDSIDE HANDOFF REPORT RECEIVED FROM DRAW FRAME RUNNER RN. PT RESTING IN BED.
--- NOTE | 2016-12-18 07:45 | NUR ---
PT RESTING IN BED. PT ASSISTED TO BATHROOM WITH SBA. PT GIVEN 4 MG PO DILAUDID, TRANSITIONING OFF DILAUDID DIRECTOR SALES TRAINING. PT TOLERATING SOFT DIET, DENIES NAUSEA, BOWEL TONES ACTIVE, BM TODAY. PT ON ROOM AIR, LUNG SOUNDS CLEAR, DIMINISHED BASES. PLAN OF CARE DISCUSSED WITH PT. PT DENIES OTHER NEEDS AT THIS TIME.
--- NOTE | 2016-12-18 09:38 | DS ---
[facility] [address], [place] [address] Signed DATE OF DISCHARGE: 12/18/16 FINAL DIAGNOSIS: Perforated distal transverse colon/splenic flexure. PROCEDURE Laparotomy with takedown of splenic flexure and primary colorrhaphy. HISTORY OF PRESENT ILLNESS Marcelle is a 51-year-old female who came to us the day prior to admission for her screening colonoscopy. She had a small polyp removed from the distal transverse colon around 85 cm. She had been discharged to home. About 8 o'clock that evening, she was starting to have some pain in the left upper quadrant which quickly spread. Her friend brought her to the emergency room for evaluation. Of course, she was tender in the left upper quadrant with an elevated white blood cell count. CT scan confirmed free air along with some inflammatory changes around the splenic flexure. I was called, of course, to the emergency room to see Marcelle with respect to the above. HOSPITAL COURSE I met with Marcelle and her friend in the emergency room. I explained to them that she needed to go directly to the OR. We took her to the OR for her upper midline incision and we had to takedown the splenic flexure in order to mobilize it up into the operative field. She had some previously chronically adherent omentum around the splenic flexure and it took a few minutes to free that up and then we found a small 3 mm perforation underneath that area. It was oversewn in 2 layers. The whole area was irrigated and suctioned out until clear. We then kept Marcelle in the hospital on her IV antibiotics. She has been through an expected postop course. Her white counts returned to normal. Her fevers have abated. She is now tolerating a low residue diet with lots of flatus and several bowel movements. We have weaned down the IV fluids. She gets deathly ill with Hydrocodone; however, she has used Dilaudid in the past. We will go ahead and try some Dilaudid this morning. If that works out well, she will be going home later today. In the meantime, we did have our physical therapist see her and she is ambulating up and down the hallways, and she has been able to do the stairs as well. DISCHARGE PLANS AND MEDICATIONS Marcelle will be discharged home with Dilaudid 4 mg tablets 1-2 tablets p.o. q.4-6 hours p.r.n. pain. We will dispense 50 tablets with no refills. We will have her continue her activities of daily living including walking up and down stairs and showering and bathing as usual. We have asked her not to do any heavy pushing, pulling, or lifting over 20 pounds. We will leave all her rachael in place. She can follow a regular diet. We have asked her to stay away from raw vegetables, potato chips, popcorn and so forth. We were going to have her back in our office in about 5-7 days for follow-up. She has had 7 full days of antibiotics here in the hospital, so we will discontinue the Electronically Signed By: JB BUTLER MD 12/18/16 0938 PATIENT NAME: MARCELLE ERICKSON DISCHARGE SUMMARY DATE OF : 63 PHYSICIAN: JB BUTLER MD REPORT #: [id number] REPORT IS CONFIDENTIAL AND NOT TO BE RELEASED WITHOUT AUTHORIZATION [facility] [address] [place] [id number] Signed antibiotics at the time of discharge. She and her friend have expressed understanding and agreed to the above plan. MD ELLIOT Castro/Jackl /[id number] cc: Jr Stoner MD Electronically Signed By: JB BUTLER MD 12/18/16 0938 PATIENT NAME: MARCELLE ERICKSON DISCHARGE SUMMARY DATE OF : 63 PHYSICIAN: JB BUTLER MD REPORT #: [id number] REPORT IS CONFIDENTIAL AND NOT TO BE RELEASED WITHOUT AUTHORIZATION
--- NOTE | 2016-12-18 12:10 | NUR ---
PT SALINE LOCKED, IV ABX INFUSION COMPLETED. PT STATES PAIN TOLERABLE AT THIS TIME, PT STATES DILAUDID EFFECTIVE IN CONTROLLING PAIN. PT SBA TO BATHROOM.
--- NOTE | 2016-12-18 13:00 | NUR ---
PT REQUESTING PAIN MEDICATION, GIVEN 8 MG PO DILAUDID. PT DENIES OTHER NEEDS AT THIS TIME.
[2016-12-18] MEDS ORDERED: DILAUDID4 MG PO (13:54)
--- NOTE | 2016-12-18 14:23 | NUR ---
PATIENT IV DC'D IN THE RIGHT HAND TIP INTACT, D/C INSTRUCTIONS GIVEN AND QUESTIONS ANSWERED.
--- NOTE | 2016-12-18 14:34 | NUR ---
DISCHARGE INSTRCUTIONS COMPLETED. IV CATH REMOVED. DISCUSSED PAIN MANAGEMENT WITH PT, PT INSTRUCTED TO TAKE PAPER PRESCRIPTION TO PHARMACY TO HAVE FILLED. PT AWAITING FAMILY MEMBER TO BRING CLOTHING.
--- NOTE | 2016-12-18 15:19 | NUR ---
HELPED PATIENT TO THE RESTROOM. GOT DRESSED. AM CARE. CLEANED UP ROOM.
--- NOTE | 2016-12-18 15:22 | NUR ---
PT DSICHARGED. PT BEING ESCORTED TO LOBBY WITH NURSE AIDE.
== END 2016-12-18 15:25 | disposition home or self-care (01) | DRG 329 ==
LOC: ED 21:20 → MS 12-12 02:08 → CCU 12-12 05:02 → MS 12-13 14:45
PROVIDERS: ADMIT Colon & Rectal Surgery
PROC: 5A1935Z Respiratory Ventilation, Less than 24 Consecutive Hours (ICD-10-PCS; 2016-12-12)
PROC: 0DQL0ZZ Repair Transverse Colon, Open Approach (ICD-10-PCS; principal; 2016-12-12 03:27)
DX: S36.531A Laceration of transverse colon, initial encounter (principal); J95.821 Acute postprocedural respiratory failure; K91.71 Accidental puncture and laceration of a digestive system organ or structure during a digestive system procedure; E87.2 Acidosis; Y65.8 Other specified misadventures during surgical and medical care; Z86.010 Personal history of colon polyps; E87.6 Hypokalemia; T41.0X5A Adverse effect of inhaled anesthetics, initial encounter; E66.9 Obesity, unspecified; Z68.37 Body mass index [BMI] 37.0-37.9, adult
CPT/HCPCS: 00840; 31720; 36415; 36600; 71010; 74177; 80048; 80053; 81001; 82803; 83690; 83735; 84100; 85025; 93005; 93010; 94003; 94640; 94667; 94668; 94762; 96361; 96365; 96372; 96375; 96376; 97110; 97116; 97161; 99285; J0692; J0696; J1100; J1170; J1644; J1885; J2405; J2550; J2704; J2765; J3010; J3475; J7030; J7060; J7120; Q9967

== ENCOUNTER 2017-12-17 05:35 | Day surgery (SDC) | payer BC, OTHER ==
[~2017-12-17] VITALS: Ht 160 cm; Wt 94.8 kg
--- NOTE | ~2017-12-17 | OR ---
[facility] [address] [facility] [facility] [address] [place], [place] [address] Draft DATE OF OPERATION: 12/17/2017 SURGEON: Sagar Quevedo MD PREOPERATIVE DIAGNOSIS: Symptomatic soft tissue mass, occipital/neck area. POSTOPERATIVE DIAGNOSIS: Subfascial lipoma of superior neck/occipital area, consistent with lipoma. PROCEDURE PERFORMED: Excision of soft tissue mass, posterior neck/occipital area, subfascial. ANESTHESIA: General endotracheal, Sobeida Adamson, C.R.N.A.; and local 20 mL of 0.25% Marcaine with epinephrine. INDICATION: This 52-year-old woman is a patient of Dr. Stoner, has noted to have a soft tissue mass of her superior neck while within the hairline in the region of the occiput. It is about 6 cm in length or so. It is most consistent clinically with a lipoma, but is not very superficial. There is no sign of regional adenopathy. She is admitted at this time to undergo excision of the lesion, understands the risks of bleeding, infection, recurrence, and so on. FINDINGS: A multilobulated lipomatous mass was noted beneath the fascial layer. It was densely adherent to the posterior fascia of the muscular compartment of the neck and was excised completely. There were no complications. Additional skin superiorly was excised to allow for more cosmetic closure. DESCRIPTION OF PROCEDURE: The patient was brought to the operating room, given a general endotracheal anesthetic, and placed in the prone position. Both arms and chest and so forth were carefully padded. The posterior occipital area was clipped and prepared with Betadine solution and draped sterilely. The palpable mass was in the central aspect at the junction between the occiput and the superior neck. An incision was made over the dominant portion of the lesion and dissection carried through the dermis sharply and ultimately with electrocautery. Using blunt and sharp dissection, the soft tissue of the neck was and ultimately identifying beneath the deep fascial layer a lipomatous mass. PATIENT NAME: MARCELLE ERICKSON OPERATIVE REPORT DATE OF : 63 REPORT #: [id number] PHYSICIAN: SAGAR QUEVEDO MD PCP: CAYLA STONER MD REPORT IS CONFIDENTIAL AND NOT TO BE RELEASED WITHOUT AUTHORIZATION [facility] [address] [place], [place] [address] Draft This was dissected free with meticulous care using blunt and electrocautery dissection. The lesion extended down to the posterior muscular compartment of the neck. It was excised from that area completely. It measured approximately 5 cm in length and 3 cm in depth. Electrocautery was used for hemostasis. Additional irrigation was undertaken and hemostasis assured with electrocautery. A 20 mL of 0.25% Marcaine with epinephrine injected locally. Closure of the skin and soft tissue would likely present a rather significant redundancy of skin and therefore portion of skin in the superior aspect of the flap was excised. This allowed for cosmetic closure in layers of interrupted 2-0 Vicryl and running subcuticular 3-0 Vicryl for the skin. Steri-Strips were applied as was a Mepilex silver sponge dressing and small amount of OpSite. The patient was ultimately returned to supine position, extubated, and transferred to recovery room in good condition having suffered no complications. Sponge, needle, and instrument counts reported as correct x3. Sagar Quevedo MD JM/MODL /[id number] cc: Cayla Stoner MD Copies: CAYLA STONER MD ~ PATIENT NAME: MARCELLE ERICKSON OPERATIVE REPORT DATE OF : 63 REPORT #: [id number] PHYSICIAN: SAGAR QUEVEDO MD PCP: CAYLA STONER MD REPORT IS CONFIDENTIAL AND NOT TO BE RELEASED WITHOUT AUTHORIZATION
[~2017-12-17 05:35] MED LIST changes: +DILAUDID4 MG PO
[2017-12-17] MEDS ORDERED: LORAZEPAM1 MG PO (05:56)
[2017-12-17] MEDS ORDERED: VITAMIN D1000 UNI1 PO (05:57)
--- NOTE | 2017-12-17 08:49 | NUR ---
12/17/17 0849 Lucretia Aguillon 0837 PT ARRIVES TO PACU, SLEEPING. [address] AT 10L VIA MASK. PER SPEEDER FRAME TENDER PT SUSPECTED TO HAVE UNDIAGNOSED ALEJANDRO. PT SNORING, 02 STABLE. VITALS STABLE. PT INCONT. OF URINE IN OR. DRESSING C/D/I. 0840 PT COUGHING, AWAKEN TO STIMULI BUT UNABLE TO ANSWER QUESTIONS. 02 DECREASED TO 5L VIA MASK, 02 AT 99%.
[2017-12-17] MEDS ORDERED: OXYCODON-ACETA1 EAC2 PO (08:52)
[2017-12-17] MEDS ORDERED: MAPAP325 MG PO (08:52)
[2017-12-17] MEDS ORDERED: IBUPROFEN600 MG PO (08:52)
--- NOTE | 2017-12-17 09:45 | NUR ---
PT REQUESTED PASTORAL CARE VISIT. I ARRIVED IN PT'S RM, FOUND HER TO BE VERY PLEASANT, BUT ALITTLE ANXIOUS. PT REQUESTED PRAYER, WILL FOLLOW NEEDED
--- NOTE | 2017-12-17 10:01 | NUR ---
PT ARRIVES TO DS RM 5 FROM RECOVERY DROWSY WITH EYES CLOSED. PT RESPONDS TO VOICE COMMAND AND OPENS EYES. PT RATES PAIN 0/10 AND STATES, "SINCE SHE GAVE ME THAT PAIN MEDICATION, I DON'T HAVE ANY PAIN." PT IS NAUSEATED ON ARRIVAL AND IS PROVIDED EMISIS BAG. PT BEGINS VOMITING AND IV ZOFRAN IS GIVEN. PT PROVIDED ICED WATER AND CRACKERS. SCD'S IN PLACE. CALL LIGHT TO LEFT OF PT. PT FAMILY AT BEDSIDE. PT VOMITING STOPS, PT TAKES SMALL SIPS OF WATER AND EATS A CRACKER. PT MORE ALERT NOW AND COMMUNICATING WITH FAMILY. WILL CONTINUE TO MONITOR.
--- NOTE | 2017-12-17 11:17 | NUR ---
LE 1055: PT FEELING NAUSEATED ON ASSESSMENT. VERBAL ORDER OBTAINED FROM YAYA GILMORE CRNA FOR 12.5 MG IV PHENERGAN NOW. PT TOLERATES MEDICATION WELL, BUT VERY DROWSY. O2 MONITOR IN PLACE, SATING 97% ON 2 L VIA NC. PT FAMILY REQUESTS MEDICATION SCRIPT TO FILL AT PHARMACY WHILE WAITING ON DC. WILL CONTINUE TO MONITOR PT.
--- NOTE | 2017-12-17 11:52 | NUR ---
PT PARTNER BACK IN ROOM AT BEDSIDE. PT RESTING WITH EYES CLOSED, EVEN AND NON-LABORED RR, SATING AT 97% ON 1 L NC. PT ABLE TO RESPOND TO VOICE COMMAND, BUT EASILY DOSES OFF.
--- NOTE | 2017-12-17 13:09 | NUR ---
[id number]: PT UP TO BR WITH RN ASSIST. PT ABLE TO VOID 400 MLS YELLOW URINE. PT BACK IN TO BED, STILL FEELING DROWSY.
--- NOTE | 2017-12-17 14:17 | NUR ---
LE 1345: DC CRITERIA MET. PT IS AGREEABLE TO GOING HOME. DC INSTURCTIONS GIVEN IN PRESENCE OF PT AND PARTNER. ALL QUESTIONS ANSWERED. PT DC'S VIA WC FROM DS RM 5 HOME.
== END 2017-12-17 14:00 | disposition home or self-care (01) ==
LOC: DS 05:35
PROVIDERS: Surgery
PROC: 0JB40ZZ Excision of Right Neck Subcutaneous Tissue and Fascia, Open Approach (ICD-10-PCS; principal; 2017-12-17 06:45)
DX: D17.0 Benign lipomatous neoplasm of skin and subcutaneous tissue of head, face and neck (principal); E66.9 Obesity, unspecified; F41.9 Anxiety disorder, unspecified; K21.9 Gastro-esophageal reflux disease without esophagitis; Z88.1 Allergy status to other antibiotic agents; Z79.899 Other long term (current) drug therapy; Z68.39 Body mass index [BMI] 39.0-39.9, adult
CPT/HCPCS: 00300; J0330; J0690; J1100; J1644; J2250; J2270; J2405; J2550; J3010; J7120